=== PATIENT | female | born 1995 | race Caucasian/White ===

== ENCOUNTER 2025-01-27 08:02 | Day surgery (SDC) | payer BC ==
[2025-01-25 15:37] VITALS: BMI 38.7
[2025-01-27] MEDS ORDERED: SUGAMMADEX SODIUM 200 MG/2 ML VIAL ONE (09:44)
[2025-01-27] MEDS ORDERED: Rocuronium Bromide 10 MG/ML (10ML VIAL) ONE (09:44)
[2025-01-27] MEDS ORDERED: Ondansetron PF 4 MG/2 ML Vial ONE ×2 (09:44→14:13)
[2025-01-27] MEDS ORDERED: Lidocaine 1% PF 5 ML VIAL ONE (09:44)
[2025-01-27] MEDS ORDERED: PROPOFOL 20 ML ONE ×2 (09:44→11:07)
[2025-01-27] MEDS ORDERED: Lidocaine 1% w/Epinephrine 1:200K 30 ML VIAL ONE (10:06)
[2025-01-27] MEDS ORDERED: HYDROcodone/Acetaminophen 5/325 mg Tablet ONE (14:13)
== END 2025-01-27 15:55 | disposition home or self-care (01) ==
LOC: CSHSDC 08:02
PROVIDERS: ATTEND Otolaryngology Plastic Surgery within the Head & Neck
PROC: 09HD05Z Insertion of Single Channel Cochlear Prosthesis into Right Inner Ear, Open Approach (ICD-10-PCS; principal; 2025-01-27)
DX: H90.3 Sensorineural hearing loss, bilateral (principal); Z90.89 Acquired absence of other organs; Z91.048 Other nonmedicinal substance allergy status
CPT/HCPCS: J0169; J1100; J2250; J2405; J2550; J2704; J3010; L8614